=== PATIENT | female | born 1990 | race Caucasian/White ===

== ENCOUNTER 2024-04-28 18:54 | Emergency (ER) | payer OTHER, SELFPAY ==
[2024-04-28 19:00] VITALS: BP 124/80
[2024-04-28 19:23] LABS: % Basophils 0.2 % (0-2); % Eosinophils 0.2 % (0-6); % Immature Granulocytes 0.4 % (0-0.5); % Lymphocytes 13.2 % (20.5-51.1); % Monocytes 3.3 % (1.7-9.3); % Neutrophils 82.7 % (42.2-75.2); Absolute Lymphocytes 1.2 10^3/uL (1.2-3.4); Absolute Monocytes 0.3 10^3/uL (0.1-0.6); Absolute Neutrophils 7.7 10^3/uL (1.4-6.5); Hematocrit 36.9 % (37.0-47.0); Hemoglobin 12.8 g/dL (12.0-16.0); Mean Corp Hgb Conc. 34.7 g/dL (33.0-37.0); Mean Corpuscular Hgb 30.9 pg (27.0-31.0); Mean Corpuscular Volume 89.1 fL (81.0-99.0); Mean Platelet Volume 9.5 fL (7.4-10.4); Nucleated Red Blood Cells % 0 %; Platelet Count 309 10^3/uL (130-400); Red Blood Cell Count 4.14 10^6/uL (4.20-5.40); Red Cell Dist. Width 12.7 % (11.5-14.5); White Blood Cell Count 9.3 10^3/uL (4.8-10.8)
[2024-04-28 19:30] VITALS: BMI 33.1
[2024-04-28 19:35] VITALS: BP 140/74
[2024-04-28 19:36] LABS: ALT (SGPT) 35 U/L (0-35); AST (SGOT) 42 U/L (14-36); Albumin 4.4 g/dl (3.5-5.0); Alkaline Phosphatase 48 U/L (38-126); Blood Urea Nitrogen 8 mg/dl (7-17); Calcium 9.2 mg/dl (8.4-10.2); Carbon Dioxide 22 mmol/L (22-30); Chloride 104 mmol/L (98-107); Estimated Creatinine Clearance 112 ml/min; Glucose 109 mg/dl (70-99); Potassium 4.2 mmol/L (3.5-5.1); Sodium 136 mmol/L (135-145); Total Bilirubin 1.1 mg/dl (0.2-1.3); Total Protein 7.6 g/dl (6.3-8.2); eGFR > 60.00
[2024-04-28 19:48] LABS: Troponin I < 0.012 ng/ml
[2024-04-28 20:00] VITALS: BP 127/63
[2024-04-28 21:00] VITALS: BP 124/72
[2024-04-28 22:09] VITALS: BP 118/71
--- NOTE | 2024-04-28 22:33 | ED.GENMED ---
History of Present Illness
General
Chief Complaint: Chest Pain
Source: patient
Exam Limitations: none
Time Seen by Provider: 04/28/24 20:51
Nursing documentation reviewed up to this point in time: agreed with
History of Present Illness
History of Present Illness:
The patient is a 34-year-old female presenting to the emergency department today with concerns of an episode where she was blow drying her hair felt some lightheadedness idling on the ground had some tingling to the right arm also felt some
shortness of breath. Did not have any chest pain initially she claims that she had improvement of lightheadedness but then an hour later started feeling some chest achiness and tightness. Also felt very anxious. Patient does claim that she had a
medical 5 days ago as well but otherwise has no additional symptoms ongoing with that. No abdominal pain.
Past History
Past History
ED Past Medical History: Psychiatric (depression/anxiety)
ED Past Surgical History: None
Social History
Tobacco: Vaping
Alcohol: Occasional
Drug: None
Personal: Single
Living: with family
Employment: Employed
Family History
Family History: Hypertension
Review of Systems
Review of Systems
Allergies reviewed?: Yes
All Other Systems: ROS reviewed and negative except as documented in HPI and ROS
Phy Exam
Physical Exam
Physical Exam:
GENERAL: Alert , in no apparent distress
EYE: pupils equal and reactive
NECK: Supple, no significant adenopathy.
ENT: o/p clr, mmm.
CARDIAC: Regular rate and rhythm .
LUNGS: Clear breath sounds bilaterally, no acute respiratory distress, no wheezes/rales/rhonchi
ABDOMEN: Soft, without focal tenderness, no r/g, no cvat
NEUROLOGICAL: Alert and oriented, no focal neuro deficits
SKIN: Warm and dry, skin intact.
MUSCULOSKELETAL: No edema, well perfused.
PSYCH: Normal and appropriate interaction.
Scores
Heart Score for Chest Pain Patients
STEMI patient?: Not applicable
Course
Orders/Labs/Results
Orders:
Orders
04/28/24 18:55
EKG [Electrocardiogram (*1)] Urgent
Reason for Study: Chest Pain
EKG- Treatment ONCE
04/28/24 19:02
Cardiac Monitoring- Treatment ONCE
IV Insert/Care/Rem.- Treatment PRN
O2 Therapy [RESP] Urgent
Titrate/Wean O2 to maintain O2 sat greater than (%): 90
Special Instructions: Maintain sats >/=90%
Pulse Ox/spot Check [RESP] Urgent
Quantity: 1
Special Instructions: ON ROOM AIR
04/28/24 19:14
Complete Blood Count/With Diff Urgent
Comprehensive Metabolic Panel Urgent
Troponin I Urgent
04/28/24 21:00
Chest [CR Chest - 2 Views ] Urgent
Comment:
Reason For Exam: cp
04/28/24 21:57
EKG [Electrocardiogram (*1)] Urgent
Reason for Study: Chest Pain
EKG- Treatment ONCE
04/28/24 22:07
Troponin I Urgent
Abnormal Lab Results
04/28/24
19:14
RBC 4.14 L 10^6/uL
(4.20-5.40)
Hct 36.9 L %
(37.0-47.0)
Absolute Neuts (auto) 7.7 H 10^3/uL
(1.4-6.5)
Neutrophils % 82.7 H %
(42.2-75.2)
Lymphocytes % 13.2 L %
(20.5-51.1)
Glucose 109 H mg/dl
(70-99)
AST 42 H U/L
(14-36)
04/28/24 19:14
04/28/24 19:14
Vital Signs
Initial and Last Documented VS:
Initial Vital Signs
Temp Pulse Resp BP Pulse Ox
98.5 F 81 19 124/80 97
04/28/24 19:00 04/28/24 19:00 04/28/24 19:00 04/28/24 19:00 04/28/24 19:00
Last Documented Vital Signs
Temp Pulse Resp BP Pulse Ox
98.5 F 76 19 127/63 98
04/28/24 19:00 04/28/24 20:30 04/28/24 20:30 04/28/24 20:00 04/28/24 20:30
MDM/Problems Addressed
MDM/Problems Addressed:
34-year-old female presenting to the emergency department today with concerns of an episode of lightheadedness she had an episode where she felt anxious and had some chest pain as well. Asymptomatic here. Vital signs normal. Labs unremarkable
patient no distress here in the ER EKG without emergent findings 2 negative troponins. Patient with no evidence of emergent pathology causing symptoms today advised for close a patient follow-up with a primary care doctor. Return precautions given.
*Critical Care Note
Total Time (30-74mins, 75-104mins- exclusive of procedures): Not Applicable
ED Attending Note
-
Portions of this chart may have been created with voice recognition software.� Occasional wrong word or��sound alike� substitutions may have occurred due to the inherent limitations of voice recognition software.
Discharge Plan
Departure
Patient Disposition: Home (Routine Discharge)
Date of Disposition: 04/28/24
Time of Disposition: 22:47
Patient with high blood pressure during this ER visit?: No
Condition: Good
Covid-19: Not Applicable
Discharge Problem:
Lightheadedness
Instructions: Chest Pain PCP Follow Up
Prescriptions:
No Action
escitalopram oxalate 20 MG tablet
20 mg PO DAILY
aripiprazole 2 MG tablet
2 mg PO HS
mupirocin 2 % ointment
1 applic topical BID Qty: 22 0RF
Referrals:
Oli Mcnair MD [Family Provider] -
Activity Restrictions/Additional Instructions:
You came to the emergency department today with concerns of lightheadedness as well as additional symptoms at home. Here you had a reassuring assessment. Please follow closely with the primary care doctor within 1 to 2 weeks. Return to the
emergency department for any worsening, new or concerning symptoms.
Interventions
Interventions:
*Risk Screen - Suicide Last Done: 04/28/24 19:00
*Neglect/Abuse Screening Last Done: 04/28/24 19:00
ED- Fall Risk Assessment Last Done: 04/28/24 19:30
*ED COVID-19 Vaccine History Last Done: 04/28/24 19:30
ED- Cardiac Assessment Last Done: 04/28/24 19:30
Discharge Date and Time
Print Language: [id number]
[2024-04-28 22:37] LABS: Troponin I < 0.012 ng/ml
== END 2024-04-28 23:01 | disposition home or self-care (01) ==
LOC: EMR 18:54
PROVIDERS: Physician Assistant; EMERGENCY PHYSICIAN Emergency Medicine; FAMILY PHYSICIAN Pharmacist
DX: R42 Dizziness and giddiness (principal); R07.89 Other chest pain; F17.290 Nicotine dependence, other tobacco product, uncomplicated
CPT/HCPCS: 99285; 71046; 80053; 84484; 85025; 93005